=== PATIENT | female | born 1950 | race Two or more races ===

== ENCOUNTER 2024-03-31 20:22 | Emergency (ER) | payer BC ==
[~2024-03-31] VITALS: Ht 154.9 cm; Wt 59.0 kg
[2024-03-31] MEDS ORDERED: METOCLOPRAMIDE HCL 5 MG/ML VIAL IM STA (23:53)
[2024-03-31] MEDS ORDERED: 0.9 % SODIUM CHLORIDE 1,000 ML IV STA (23:55)
[2024-03-31] MEDS ORDERED: ONDANSETRON HCL 2 MG/ML VIAL IV STA (23:56)
[2024-03-31] MEDS ORDERED: FAMOtidine 10 MG/ML (4ML VIAL) IV PUSH STA (23:56)
[2024-04-01] MEDS ORDERED: ONDANSETRON HCL 2 MG/ML VIAL ONE (00:04)
[2024-04-01] MEDS ORDERED: METOCLOPRAMIDE HCL 5 MG/ML VIAL ONE (00:05)
[2024-04-01] MEDS ORDERED: FAMOTIDINE/PF 20 MG/2 ML VIAL ONE (00:05)
[2024-04-01 00:40] LABS: HEMATOCRIT 40.8 % (36.0-45.00); HEMOGLOBIN 13.7 g/dL (12.0-15.00); MEAN CELL VOLUME 93.6 fL (80.00-100.00); MEAN CORPUSCULAR HEMOGLOBIN 31.5 pg (27.00-32.0); MEAN CORPUSCULAR HGB CONC 33.7 g/dl (32.0-36.0); PLATELET COUNT 179 K/uL (150-450); RED BLOOD COUNT 4.36 M/uL (4.00-6.00); RED CELL DISTRIBUTION WIDTH 12.9 % (11.5-14.5)
[2024-04-01 01:12] LABS: CREATININE SERUM 0.71 mg/dL (0.55-1.02); GFR 80.69; POTASSIUM 3.8 mEq/L (3.5-5.1)
== END 2024-04-01 02:46 | disposition home or self-care (01) ==
LOC: ER 20:25
DX: J10.1 Influenza due to other identified influenza virus with other respiratory manifestations (principal); K52.89 Other specified noninfective gastroenteritis and colitis; B34.9 Viral infection, unspecified